=== PATIENT | female | born 1960 | race Caucasian/White ===

== ENCOUNTER 2025-06-05 10:37 | Outpatient (CLI) | payer MEDICARE, OTHER ==
[2025-06-05] MEDS ORDERED: Barium Sulfate 96% 176 GM BOT (xray ONLY) ONE (10:47)
[2025-06-05] MEDS ORDERED: E-Z-HD 98% W/W 340GM BOT (x-ray ONLY) ONE (10:47)
== END 2025-06-05 10:38 | disposition home or self-care (01) ==
LOC: RAD 10:37
PROVIDERS: ATTEND Psychiatry & Neurology Psychiatry
DX: Z12.11 Encounter for screening for malignant neoplasm of colon (principal); R13.10 Dysphagia, unspecified; K22.89 Other specified disease of esophagus
CPT/HCPCS: 74220